=== PATIENT | female | born 1985 | race Asian ===

== ENCOUNTER 2018-08-31 00:43 | Inpatient (IN) | payer MEDICAID, OTHER, SELFPAY ==
[2018-08-31 01:16] VITALS: BMI 31.6
[2018-08-31 01:47] LABS: Amnisure Test RUPTURE DETECTED (No Rupture)
[2018-08-31 01:49] LABS: Amnisure Internal Control QC ACCEPTABLE (ACCEPTABLE)
[2018-08-31] MEDS ORDERED: Promethazine HCl 25 MG/ML VIAL IM PRN ×2 (02:03→03:44)
[2018-08-31] MEDS ORDERED: Ondansetron PF 4 MG/2 ML Vial IVP PRN ×3 (02:03→09:41)
[2018-08-31] MEDS ORDERED: Ibuprofen 800 MG TAB PO PRN (02:03)
[2018-08-31] MEDS ORDERED: Lidocaine 1% (PF) 30 ML VIAL SC PRN (02:03)
[2018-08-31] MEDS ORDERED: Meperidine HCl/PF 25 MG/ML VIAL IM/IV PRN (02:03)
[2018-08-31] MEDS ORDERED: Butorphanol Tartrate 1 MG/ML VIAL SLOW IVP PRN (02:03)
[2018-08-31] MEDS ORDERED: Acetaminophen 500 MG TAB PO PRN (02:03)
[2018-08-31] MEDS ORDERED: HYDROcodone/Acetaminophen 5/325 mg Tablet PO PRN ×3 (02:03→09:41)
[2018-08-31] MEDS ORDERED: Zolpidem Tartrate 5 MG TAB PO PRN (02:03)
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
[2018-08-31 02:13] LABS: Hemoglobin 13.8 g/dL (12.0-16.0); Mean Corpuscular Hemoglobin 28.5 pg (27.0-31.0); Mean Corpuscular Volume 83.7 fL (78.0-98.0); Mean Platelet Volume 7.3 fL (7.4-10.4); Platelet Count 285 thou/uL (130-400); Red Blood Cell (RBC) Count 4.85 mill/uL (4.20-5.40); White Blood Cell (WBC) Count 10.3 thou/uL (4.8-10.8)
[2018-08-31] MEDS ORDERED: Penicillin G Potassium 5 MILL.UNITS in Sodium Chloride 0.9% 100 ML IVPB SCH (02:15)
[2018-08-31] MEDS ORDERED: Lactated Ringer's 1,000 ML IV SCH ×2 (02:15→03:15)
[2018-08-31] MEDS ORDERED: NS w/ Oxytocin 10 units 500 ML IV SCH (02:15)
[2018-08-31 02:51] LABS: HBSAg Index 0.18 S/CO (0-0.99); Hep B Surf Ag Non-Reactive S/CO (NonReactive)
[2018-08-31] MEDS ORDERED: Fentanyl 4 mcg/Bup 0.1% Cadd 100 ML ONE (02:56)
[2018-08-31] MEDS ORDERED: Fentanyl 100 MCG/2 ML VIAL ONE (03:18)
[2018-08-31] MEDS ORDERED: Bupivacaine 0.5% 10 ML VIAL ONE (03:18)
[2018-08-31] MEDS ORDERED: diphenhydrAMINE 50 MG/ML VIAL IVP PRN (03:44)
[2018-08-31] MEDS ORDERED: Naloxone HCl 0.4 mg/ml Vial IVP PRN ×2 (03:44)
[2018-08-31] MEDS ORDERED: ePHEDrine/0.9% NaCl/PF SYRINGE 50 mg/10 ml SLOW IVP PRN (03:44)
[2018-08-31] MEDS ORDERED: Acetaminophen 325 MG TAB PO PRN (03:44)
[2018-08-31] MEDS ORDERED: Lactated Ringer's 500 ML IV PRN (03:44)
[2018-08-31] MEDS ORDERED: Fentanyl 100 MCG/2 ML VIAL I-THECAL ONE ×2 (03:44)
[2018-08-31] MEDS ORDERED: Hydrocerin (Eucerin) Cream 120 gm Jar TOP PRN (03:44)
[2018-08-31] MEDS ORDERED: Bupivacaine 0.25% 10 ML VIAL EPIDURAL ONE (03:45)
[2018-08-31] MEDS ORDERED: Fentanyl 4 mcg/Bupivacaine 0.1% Cassette 100 ML EPIDURAL SCH (03:45)
[2018-08-31] MEDS ORDERED: Communication Order-Pharmacy FS SCH (03:45)
[2018-08-31] MEDS ORDERED: Lidocaine 1.5%/Epinephrine 1:200,000 5 ML AMPUL IJ ONE ×2 (04:52)
[2018-08-31 05:20] LABS: Syphilis Antibody Nonreactive (Nonreactive); Syphilis Antibody Index 0.05 S/CO (<1.00 Non-Reactive)
[2018-08-31] MEDS ORDERED: Penicillin G 2.5 MILL.units 2.5 MILL.UNITS in Premix Bag 1 BAG IVPB SCH (06:00)
[2018-08-31] MEDS: NS / Oxytocin 40 units/1000ml 1,000 ML IV PRN ×2 (07:34→08:43)
--- NOTE | 2018-08-31 07:53 | PDOC.OPDEL ---
OB Operative/Delivery Note Delivery Dr/Surgeon: Jorge L Pre-Delivery Diagnosis: active labor, ruptured membrane Procedure/Post Delivery Dx: spontaneous vaginal delivery Weeks gestation: 39 Anesthesia: epidural - Findings A Sex: male - 1 min: 8 - 5 min: 9 - Additional Findings/Plan Placenta delivered: spontaneous Repaired Obstetrical Laceration: 2nd degree Estimated blood loss: 400ml Post delivery plan: routine recovery
[2018-08-31] MEDS ORDERED: Bisacodyl 10 MG SUPP PR PRN (09:41)
[2018-08-31] MEDS ORDERED: Ferrous Sulfate 325 MG TAB PO SCH (09:41)
[2018-08-31] MEDS ORDERED: Preparation H Ointment 28 GM TUBE PR PRN (09:41)
[2018-08-31] MEDS ORDERED: NS / Oxytocin 40 units/1000ml 1,000 ML IV SCH (09:41)
[2018-08-31] MEDS ORDERED: Adacel (T-DAP) 0.5 ML SYRINGE IM ONE (09:41)
[2018-08-31] MEDS ORDERED: Benzocaine/Menthol 20-0.5% 60 ML CAN TOP PRN (09:41)
[2018-08-31] MEDS ORDERED: diphenhydrAMINE 25 MG CAP PO PRN (09:41)
[2018-08-31] MEDS ORDERED: Milk Of Magnesia 30 ML UDCUP PO PRN (09:41)
[2018-08-31] MEDS ORDERED: Lanolin Ointment 7 GM TUBE TOP PRN (09:41)
[2018-08-31] MEDS: Docusate Calcium (SURFAK) 240 MG CAP PO SCH ×2 (11:15→22:14)
[2018-08-31] MEDS: Ferrous Sulfate 325 MG TAB PO SCH (11:16)
[2018-08-31] MEDS: Prenatal Vitamin 1 TAB PO SCH (11:16)
[2018-08-31] MEDS: HYDROcodone/Acetaminophen 5/325 mg Tablet PO PRN ×2 (13:43→18:07)
[2018-08-31] MEDS: Ibuprofen 800 MG TAB PO SCH ×2 (14:47→22:14)
[2018-09-01] MEDS: HYDROcodone/Acetaminophen 5/325 mg Tablet PO PRN (02:21)
[2018-09-01] MEDS: Ibuprofen 800 MG TAB PO SCH ×2 (06:47→13:24)
[2018-09-01 08:13] VITALS: BP 108/60; TEMP 98.2
[2018-09-01] MEDS: Ferrous Sulfate 325 MG TAB PO SCH ×2 (08:44→12:08)
[2018-09-01] MEDS: Docusate Calcium (SURFAK) 240 MG CAP PO SCH (08:44)
[2018-09-01] MEDS: Prenatal Vitamin 1 TAB PO SCH (08:44)
--- NOTE | 2018-09-01 11:40 | PDOC.PP ---
Post Progress Note Post Day #: 1 Subjective: doing well, min lochia and discomfort PO intake tolerated: yes Flatus: yes Ambulation: yes Vital Signs (12 hours) Temp Pulse Resp BP Pulse Ox 09/01/18 08:13 98.2 F 95 20 108/60 98 Weight Weight 179 lb - Physical Examination General: NAD Respiratory: non-labored breathing Abdominal: no distention Fundus firm & at: below umb Extremities: negative homans (B) Neurological: no gross focal deficits Psychiatric: A&Ox3, normal affect Result Diagrams: 08/31/18 01:56 Additional Labs: Post Labs Blood Type O POSITIVE 08/31/18 01:56 Hep Bs Antigen Non-Reactive S/CO (NonReactive) 08/31/18 01:56 (1) Vaginal delivery Code(s): O80 - ENCOUNTER FOR FULL-TERM UNCOMPLICATED DELIVERY Status: Acute - Assessment/Plan PPD1, plan for DC if baby DC today.
== END 2018-09-01 17:25 | disposition home or self-care (01) | DRG 807 ==
LOC: L&D/OP 00:43 → L&D 07:27 → 3SW 10:17
PROVIDERS: ADMIT Obstetrics & Gynecology; ATTEND Obstetrics & Gynecology
PROC: 10E0XZZ Delivery of Products of Conception, External Approach (ICD-10-PCS; principal; 2018-08-31)
PROC: 0KQM0ZZ Repair Perineum Muscle, Open Approach (ICD-10-PCS; 2018-08-31)
DX: O70.1 Second degree perineal laceration during delivery (principal); Z37.0 Single live birth; Z3A.39 39 weeks gestation of pregnancy
CPT/HCPCS: 51702; 84112; 85027; 86780; 86850; 86900; 86901; 87340; 99285; J2001; J2540; J3010; J3490; J7050